=== PATIENT | female | born 1970 | race Caucasian/White ===

== ENCOUNTER 2016-05-04 12:12 | Emergency (ER) | payer MEDICARE ==
[~2016-05-04] VITALS: Ht 165.1 cm; Wt 70.0 kg
[2016-05-04 12:14] VITALS: BP 149/95; PULSE 91; RESP 14; TEMP 97.5; O2SAT 99
--- NOTE | 2016-05-04 12:53 | PD ---
HPI Chief Complaint: Facial Pain or Swelling Time Seen by Provider: 12:51 Travel History International Travel<30 days: No Contact w/Intl Traveler<30days: No Traveled to known affect area: No History of Present Illness HPI 45-year-old female presents to the emergency Department with complaint of facial swelling and pain just below her left eye. She woke up with it this morning. She says that it is affecting her tear duct. Denies facial trauma. Denies fever, chills, nausea, vomiting. Denies change in vision. Try taking Benadryl with no relief of symptoms. Has not taken any other medications or tried any other treatments to alleviate her symptoms. Allergies to Biaxin, Dilaudid, Macrobid, whitefish. History of lupus, arthritis, hypertension, seizures. No other modifying factors or associated signs and symptoms. PFSH Past Medical History Cardiovascular Problems: Yes Cerebrovascular Accident: Yes Respiratory: Yes ?: Not Past Surgical History Hysterectomy: Yes Social History Tobacco Use: No Allergies-Medications (Allergen,Severity, Reaction): Coded Allergies: Biaxin (Verified Allergy, Severe, 05/04/16) Dilaudid (Verified Allergy, Severe, 05/04/16) Macrobid (Verified Allergy, Severe, 05/04/16) White Fish (Verified Allergy, Severe, Rash, 05/04/16) Reported Meds & Prescriptions Reported Meds & Active Scripts Active Ibuprofen 800 Mg Tab 800 Mg PO Q6HR PRN Clindamycin (Clindamycin HCl) 150 Mg Cap 450 Mg PO Q6H 10 Days Reported Meclizine (Meclizine HCl) 25 Mg Chew 25 Mg CHEW TID Flexeril (Cyclobenzaprine HCl) 10 Mg Tab 10 Mg PO TID Dilantin (Phenytoin Extended) 100 Mg Cap 200 Mg PO TID Bentyl (Dicyclomine HCl) 20 Mg Tab 20 Mg PO TID Prilosec (Omeprazole) 20 Mg Cap 20 Mg PO DAILY Synthroid (Levothyroxine Sodium) 75 Mcg Tab 75 Mcg PO DAILY Inderal LA 24 HR (Propranolol HCl) 120 Mg Cap 120 Mg PO DAILY Ativan (Lorazepam) 1 Mg Tab 1 Mg PO TID PRN Review of Systems Except as stated in HPI: all other systems reviewed are Neg Physical Exam Narrative GENERAL: Well-nourished, well-developed female patient, in no acute distress SKIN: Warm and dry. No rash. HEAD: Atraumatic. Normocephalic. Facial swelling and tenderness below the left eye that includes the left nasal area and extends to the left cheek area just below the eye; areas without erythema; swelling and tenderness does not involve the lower eyelid. No orbital tenderness, erythema or cellulitis EYES: Pupils equal and round at 3 mm with brisk reaction. No scleral icterus. No injection or drainage. EOMI. PERRLA. No drainage from the left eye noted. ENT: Mucosa pink and moist. No erythema or exudates. No uvular edema. No uvular , palatal, or tonsillar deviation. Airway patent. EARS: Bilateral pinnae and external canals appear within normal limits. Bilateral tympanic membranes without erythema, dullness or perforation. NECK: Trachea midline. No lymphadenopathy. CARDIOVASCULAR: Regular rate. RESPIRATORY: No accessory muscle use. GASTROINTESTINAL: Rounded. MUSCULOSKELETAL: No obvious deformities. No clubbing. No cyanosis. No edema. NEUROLOGICAL: Awake and alert. Oriented 3. No obvious cranial nerve deficits. Motor grossly within normal limits. Normal speech. Moves all extremities. 5/5 strength to all extremities. PSYCHIATRIC: Appropriate mood and affect; insight and judgment normal. Data Data Last Documented VS Vital Signs Date Time Temp Pulse Resp B/P Pulse Ox O2 Delivery O2 Flow Rate FiO2 05/04/16 12:14 97.5 91 14 149/95 99 Room Air Orders Ibuprofen (Motrin) (05/04/16 13:15) [facility] Medical Decision Making Medical Screen Exam Complete: Yes Emergency Medical Condition: Yes Medical Record Reviewed: Yes Differential Diagnosis Tear duct obstruction, less likely periorbital cellulitis Narrative Course 45-year-old female physical exam consistent with left nasal lacrimal duct obstruction. No eyelid edema, erythema, tenderness on palpation and I do not suspect periorbital cellulitis. I discussed the patient with Dr. Curran, my attending physician, and he recommended to encourage warm compress to the area and to prescribe antibiotics for home. Ibuprofen administered in the ER. Encourage patient to do warm compresses. Clindamycin and ibuprofen prescribed for home. Patient verbalizes understanding and agreement with treatment plan. Patient is medically cleared and stable for discharge. Discussed reasons to return to the emergency department. Instructed patient to follow up with primary care provider. Patient agrees with treatment plan. The patients vital signs are stable and the patient is stable for outpatient follow-up and treatment. Patient discharged home, stable and in no acute distress. Sepsis Criteria Criteria Outcome: Meets septic shock criteria Diagnosis Primary Impression: Nasolacrimal duct obstruction, left Referrals: Primary Care Physician Patient Instructions: Blocked Tear Duct (ED), General Instructions Departure Forms: Tests/Procedures, Work Release Enter return to work date: May 05, 2016 Additional Instructions: Antibiotics as prescribed and complete full course Ibuprofen or Tylenol as directed and as needed for pain and inflammation Warm compresses to the affected area for 20 minutes every 1-2 hours Follow-up with primary care provider Return to the emergency department immediately with worsening of symptoms, particularly as discussed Med/Other Pt SpecificInfo: Prescription(s) given Scripts Ibuprofen 800 Mg [id number] Mg PO Q6HR PRN (PAIN) #30 TAB Ref 0 Prov:Esperanza Fernandes 05/04/16 Clindamycin 150 Mg [id number] Mg PO Q6H 10 Days Ref 0 Prov:Esperanza Fernandes 05/04/16 Disposition: 01 DISCHARGE HOME Condition: Stable Esperanza Fernandes May 04, 2016 12:53
[2016-05-04] MEDS ORDERED: LORA-474 PO (13:01)
[2016-05-04] MEDS ORDERED: BENT20TA PO (13:01)
[2016-05-04] MEDS ORDERED: PROP120 PO (13:01)
[2016-05-04] MEDS ORDERED: LEVO.075 PO (13:01)
[2016-05-04] MEDS ORDERED: PRIL20CA9 PO (13:01)
[2016-05-04] MEDS ORDERED: CYCL1TAB29 PO (13:01)
[2016-05-04] MEDS ORDERED: DILA100C PO (13:01)
[2016-05-04] MEDS ORDERED: MECL25CH CHEW (13:03)
[2016-05-04] MEDS ORDERED: IBUP800T23 PO (13:07)
[2016-05-04] MEDS ORDERED: CLIN1CAP5 PO (13:07)
[2016-05-04] MEDS ORDERED: IBUPROFEN 800 MG TAB PO ONE (13:15)
== END 2016-05-04 13:32 | disposition home or self-care (01) ==
LOC: NETRI 12:12
DX: Q10.5 Congenital stenosis and stricture of lacrimal duct (principal); M19.90 Unspecified osteoarthritis, unspecified site; I10 Essential (primary) hypertension; M32.9 Systemic lupus erythematosus, unspecified
CPT/HCPCS: 99282